=== PATIENT | female | born 1995 | race Hispanic/Latino ===

== ENCOUNTER 2019-08-11 00:32 | Emergency (ER) | payer BC ==
[2019-08-11 00:42] VITALS: BP 137/95
--- NOTE | 2019-08-11 03:02 | Emergency Department Report ---
ED Extremity Problem HPI - General Chief complaint: Extremity Problem,Nontraumatic Stated complaint: INSECT BITE Time Seen by Provider: 08/11/19 02:56 Source: patient Mode of arrival: Ambulatory Limitations: No Limitations - History of Present Illness Initial comments: 23-year-old female presents to the emergency room for right lower extremity pain and swelling. Patient states that she was bit by an insect one day ago and has noticed that the pain is increased with increase in redness. Patient denies any allergies to medications. Patient reports that she is currently being treated for pyelonephritis with Augmentin. She denies any fever chills no nausea vomiting. MD Complaint: extremity pain Onset/Timin -: days(s) Location: right History of Same: No -: Yes myalgia Radiation: none Severity scale (0 -10): 6 Quality: aching, sharp Consistency: constant Improves with: nothing Worsens with: palpation Associated Symptoms: denies other symptoms. denies: chest pain, fever - Related Data Previous Rx's Medication Instructions Recorded Last Taken Type Acetaminophen/Codeine [Tylenol 1 tab PO Q6H PRN #12 tab 08/11/19 Unknown Rx /Codeine # 3 tab] Ibuprofen [Motrin 600 MG tab] 600 mg PO Q8H PRN #21 tablet 08/11/19 Unknown Rx Sulfamethoxazole/Trimethoprim 1 each PO BID #14 tablet 08/11/19 Unknown Rx [Bactrim DS TAB] Allergies Allergy/AdvReac Type Severity Reaction Status Date / Time No Known Allergies Allergy Unverified 08/11/19 03:31 ED Review of Systems ROS: Stated complaint: INSECT BITE Other details as noted in HPI Comment: All other systems reviewed and negative ED Past Medical Hx - Past Medical History Previous Medical History?: Yes Additional medical history: pyleonephritis - Surgical History Past Surgical History?: Yes Additional Surgical History: endoscopic, c sec, 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 - Social History Smoking Status: Former Smoker Substance Use Type: None - Medications Home Medications: Home Medications Medication Instructions Recorded Confirmed Last Taken Type Acetaminophen/Codeine [Tylenol 1 tab PO Q6H PRN #12 tab 08/11/19 Unknown Rx /Codeine # 3 tab] Ibuprofen [Motrin 600 MG tab] 600 mg PO Q8H PRN #21 tablet 08/11/19 Unknown Rx Sulfamethoxazole/Trimethoprim 1 each PO BID #14 tablet 08/11/19 Unknown Rx [Bactrim DS TAB] ED Physical Exam - General Limitations: No Limitations General appearance: alert - Head Head exam: Present: atraumatic, normocephalic - Eye Eye exam: Present: normal appearance - ENT ENT exam: Present: mucous membranes moist - Neurological Exam Neurological exam: Present: alert, oriented X3 - Psychiatric Psychiatric exam: Present: normal affect, normal mood - Expanded Skin Exam Expanded Type of lesion: Present: bite/sting Distribution of rash: RLE Description of rash: Present: tenderness, erythematous, macular ED Course Vital Signs 08/11/19 00:41 Temperature 98.1 F Pulse Rate 118 H Respiratory 20 Rate Blood Pressure 137/95 [Right] O2 Sat by Pulse 95 Oximetry ED Medical Decision Making - Medical Decision Making 23-year-old female presents to the emergency room for right lower extremity pain and swelling. Patient states that she was bit by an insect one day ago and has noticed that the pain is increased with increase in redness. Patient denies any allergies to medications. Patient reports that she is currently being treated for pyelonephritis with Augmentin. She denies any fever chills no nausea vomiting. Patient be placed on Bactrim. Patient to continue with Augmentin as well. Patient is to take ibuprofen and to follow-up with her primary care provider Critical care attestation.: If time is entered above; I have spent that time in minutes in the direct care of this critically ill patient, excluding procedure time. ED Disposition Clinical Impression: Insect bite Disposition: [id number]-01 TO HOME OR SELFCARE Is pt being admited?: No Does the pt Need Aspirin: No Condition: Stable Instructions: Insect Bite or Sting (ED) Prescriptions: Sulfamethoxazole/Trimethoprim [Bactrim DS TAB] 1 each PO BID #14 tablet Ibuprofen [Motrin 600 MG tab] 600 mg PO Q8H PRN #21 tablet PRN Reason: Pain , Severe (7-10) Acetaminophen/Codeine [Tylenol /Codeine # 3 tab] 1 tab PO Q6H PRN #12 tab PRN Reason: Pain , Severe (7-10) Referrals: Your,provider [Other] - 3-5 Days
[2019-08-11] MEDS ORDERED: BACTRIM DS PO ONE (03:31)
[2019-08-11] MEDS ORDERED: IBUPROFEN PO ONE (03:31)
== END 2019-08-11 04:04 | disposition home or self-care (01) ==
LOC: ED 00:32
DX: S80.861A Insect bite (nonvenomous), right lower leg, initial encounter (principal); Z87.448 Personal history of other diseases of urinary system; Z98.890 Other specified postprocedural states; Z87.891 Personal history of nicotine dependence; Z79.899 Other long term (current) drug therapy; W57.XXXA Bitten or stung by nonvenomous insect and other nonvenomous arthropods, initial encounter; Y93.89 Activity, other specified; Y92.89 Other specified places as the place of occurrence of the external cause; Y99.8 Other external cause status